=== PATIENT | male | born 1985 | race Caucasian/White ===

== ENCOUNTER 2023-04-11 14:49 | Outpatient (CLI) | payer OTHER, SELFPAY ==
--- NOTE | ~2023-04-11 | CT_ITS ---
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 TECHNIQUE: Computed tomography (CT) of the temporal bones was performed without intravenous contrast. Automated exposure control and iterative reconstruction technique were employed. The dose-length pro duct was 379.37 mGy-cm. COMPARISON: None FINDINGS: RIGHT TEMPORAL BONE: The internal auditory canal, cochlea, vestibule, semicircular canals, vestibular aqueduct, carotid ca nal, jugular bulb, facial nerve course, and ossicles are normal. There is material in the tympanic ca vity including in Prussak space. Some of this material abuts the tympanic membrane, which is otherwis e normal. Scutum is normal. The external auditory canal is normal. The mastoid air cells are hypoplas tic, but clear. LEFT TEMPORAL BONE: The internal auditory canal, cochlea, vestibule, semicircular canals, vestibular aqueduct, carotid ca nal, jugular bulb, and facial nerve course are normal. There is complete opacification of the tympani c cavity and much of the external auditory canal with erosions of bone including erosions of the ossi cles and scutum. The mastoid air cells are hypoplastic and completely opacified. IMPRESSION: 1. Complete opacification of the left tympanic cavity, left mastoid air cells, and much of the left e xternal auditory canal with erosions of bone, consistent with cholesteatoma versus chronic otitis med ia. 2. Material in right tympanic cavity including right Prussak space. No definite erosions of bone, but cholesteatoma cannot be excluded. Reviewed, dictated and finalized at location E. [facility] IMPRESSION: 1. Complete opacification of the left tympanic cavity, left mastoid air cells, and much of the left external auditory canal with erosions of bone, consistent with cholesteatoma versus chronic otitis media. 2. Material in right tympanic cavity including right Prussak space. No definite erosions of bone, but cholesteatoma cannot be excluded.
== END 2023-04-11 14:50 | disposition home or self-care (01) ==
LOC: ANHIMG 14:51
PROVIDERS: Visit Provider Otolaryngology
DX: L92.9 Granulomatous disorder of the skin and subcutaneous tissue, unspecified (principal); H60.93 Unspecified otitis externa, bilateral; H71.92 Unspecified cholesteatoma, left ear
CPT/HCPCS: 70480